=== PATIENT | male | born 1955 | race Caucasian/White ===

== ENCOUNTER 2018-07-04 09:13 | Emergency (ER) | payer OTHER ==
[2018-07-04] MEDS ORDERED: fentaNYL 100 MCG/2 ML INJ IVP ONE (09:47)
[2018-07-04] MEDS ORDERED: KETOROLAC 30 MG/1 ML SDV IVP ONE (09:47)
[2018-07-04] MEDS ORDERED: NS 1,000 ML IV ONE (09:47)
[2018-07-04] MEDS ORDERED: ONDANSETRON 4 MG/2 ML VIAL IVP ONE (09:47)
[2018-07-04] MEDS ORDERED: TAMSULOSIN HCL 0.4 MG CAP PO ONE (09:48)
--- NOTE | 2018-07-04 09:48 | EDPHY ---
H & P Time Seen by Provider: 07/04/18 09:26 HPI/ROS: CHIEF COMPLAINT: "I think I have a kidney stone" HISTORY OF PRESENT ILLNESS: The patient is a 63-year-old male with a history of numerous previous kidney stones the presents emergency department with similar complaints. Patient states he developed right flank pain approximately 36 hr ago. The pain has slowly progressed. He now has right testicular pain as well. This is typical of his previous kidney stones. He has had no nausea vomiting. No fevers or chills. No hematuria or dysuria. REVIEW OF SYSTEMS: 10 systems were reveiwed and are negative with the exception of the elements mentioned in the history of present illness. Past Medical/Surgical History: Includes kidney stone, intestinal resection Smoking Status: Never smoked Physical Exam: Vitals noted GENERAL: Well-appearing, in no acute distress, alert. Comfortably reading a book. HEENT: Eyes normal to inspection, normal pharynx, no signs of dehydration. NECK: Normal, supple. RESPIRATORY: Clear to auscultation bilaterally, no rales, rhonchi or wheezing. CVS: Regular rate and rhythm, no rubs, murmurs, or gallops. ABDOMEN: Soft, nontender, nondistended, no organomegaly. : Normal appearing testicles and penis. There is no testicular tenderness. Cremaster normal. BACK: Normal to inspection, no CVA tenderness. SKIN: Normal color, no rash, warm, dry. No pallor. EXTREMITIES: No pedal edema, no calf tenderness, no Homans sign or cords, no joint swelling. NEURO/PSYCH: Alert and oriented, normal mood and affect, normal motor sensory exam. Constitutional: Initial Vital Signs Temperature (C) 36.7 C 07/04/18 09:19 Heart Rate 60 07/04/18 09:19 Respiratory Rate 18 07/04/18 09:19 Blood Pressure 156/98 H 07/04/18 09:19 O2 Sat (%) 93 07/04/18 09:19 O2 Delivery Mode Room Air Allergies/Adverse Reactions: No Known Allergies Allergy (Verified 07/04/18 09:18) Home Medications: Medication Instructions Recorded Omeprazole 07/04/18 Medical Decision Making - Diagnostics Imaging Results: Imaging Impressions Abdomen/Pelvis CT 07/04/18 09:48 Impression: 1. Bilateral nephrolithiasis, with no obstructive ureterolithiasis. 2. Moderate prostatomegaly, indenting the urinary bladder base. 3. Mild distal descending and sigmoid colon diverticulosis, without active diverticulitis. Attention: This CT examination is specifically designed to evaluate patients who are clinically suspected of having acute obstructive uropathy. This examination does not use radiographic contrast, and as such, provides only a limited evaluation of the abdomen, pelvis, and retroperitoneum. If there is further clinical suspicion for pathological conditions other than obstructive uropathy, a complete CT evaluation of the abdomen and pelvis utilizing intravenous, oral, and rectal contrast should be considered. Findings were discussed with AMIRAH BATISTA MD at 11:02, on 07/04/2018. ED Course/Re-evaluation: In the emergency department I discussed possible etiologies with the patient. I answered all his questions. An IV was placed. Laboratory studies and urine sample were obtained. A CT scan of the abdomen pelvis was ordered. Patient was given Toradol 30 mg IV, fentanyl 50 mcg IV, Zofran 4 mg IV and Flomax 0.4 mg orally for pain and nausea. UA negative CBC and chemistry unremarkable. CT of the abdomen pelvis: Please refer the dictated report by Dr. Mora. Patient has bilateral nephrolithiasis. There is no ureterolithiasis. The patient does have enlarged prostate. I discussed the results with the patient. I answered all his questions. He understands he needs follow-up with his primary care physician and Urology pre CT findings. He is given warnings prior to leaving. Will return with worsening symptoms. He was given a 3 day course of Flomax. Differential Diagnosis: My differential includes but is not limited to kidney stone, urinary tract infection, pyelonephritis, testicular torsion - Data Points Laboratory Results: Laboratory Results 07/04/18 10:00 07/04/18 10:00 07/04/18 07/04/18 07/04/18 10:00 10:00 09:15 WBC 7.63 10^3/uL 10^3/uL (3.80-9.50) RBC 5.14 10^6/uL 10^6/uL (4.40-6.38) Hgb 16.4 g/dL g/dL (13.7-17.5) Hct 48.5 % % (40.0-51.0) MCV 94.4 fL fL (81.5-99.8) MCH 31.9 pg pg (27.9-34.1) MCHC 33.8 g/dL g/dL (32.4-36.7) RDW 12.7 % % (11.5-15.2) Plt Count 234 10^3/uL 10^3/uL (150-400) MPV 9.6 fL fL (8.7-11.7) Neut % (Auto) 66.4 % % (39.3-74.2) Lymph % (Auto) 23.5 % % (15.0-45.0) Cook % (Auto) 7.9 % % (4.5-13.0) Eos % (Auto) 1.2 % % (0.6-7.6) Baso % (Auto) 0.5 % % (0.3-1.7) Nucleat RBC Rel Count 0.0 % % (0.0-0.2) Absolute Neuts (auto) 5.07 10^3/uL 10^3/uL (1.70-6.50) Absolute Lymphs (auto) 1.79 10^3/uL 10^3/uL (1.00-3.00) Absolute Monos (auto) 0.60 10^3/uL 10^3/uL (0.30-0.80) Absolute Eos (auto) 0.09 10^3/uL 10^3/uL (0.03-0.40) Absolute Basos (auto) 0.04 10^3/uL 10^3/uL (0.02-0.10) Absolute Nucleated RBC 0.00 10^3/uL 10^3/uL (0-0.01) Immature Gran % 0.5 % % (0.0-1.1) Immature Gran # 0.04 10^3/uL 10^3/uL (0.00-0.10) Sodium 136 mEq/L mEq/L (135-145) Potassium 4.3 mEq/L mEq/L (3.5-5.2) Chloride 102 mEq/L mEq/L (97-110) Carbon Dioxide 24 mEq/l mEq/l (22-31) Anion Gap 10 mEq/L mEq/L (6-14) BUN 24 mg/dL H mg/dL (7-23) Creatinine 0.9 mg/dL mg/dL (0.7-1.3) Estimated GFR > 60 Glucose 99 mg/dL mg/dL (70-100) Calcium 9.5 mg/dL mg/dL (8.5-10.4) Urine Color COLORLESS Urine Appearance CLEAR Urine pH 7.0 (5.0-7.5) Ur Specific Coker 1.002 (1.002-1.030) Urine Protein NEGATIVE (NEGATIVE) Urine Ketones NEGATIVE (NEGATIVE) Urine Blood NEGATIVE (NEGATIVE) Urine Nitrate NEGATIVE (NEGATIVE) Urine Bilirubin NEGATIVE (NEGATIVE) Urine Urobilinogen NEGATIVE EU EU (0.2-1.0) Ur Leukocyte Esterase NEGATIVE (NEGATIVE) Urine Glucose NEGATIVE (NEGATIVE) Medications Given: Discontinued Medications Fentanyl (Sublimaze) 50 mcg IVP EDNOW ONE Stop: 07/04/18 09:48 Last Admin: 07/04/18 10:02 Dose: Not Given Sodium Chloride (Ns) 1,000 mls @ 0 mls/hr IV ONCE ONE; Wide Open PRN Reason: Protocol Stop: 07/04/18 09:48 Last Admin: 07/04/18 09:58 Dose: 1,000 mls Ketorolac Tromethamine (Toradol) 30 mg IVP EDNOW ONE Stop: 07/04/18 09:48 Last Admin: 07/04/18 09:58 Dose: 30 mg Ondansetron HCl (Zofran) 4 mg IVP EDNOW ONE Stop: 07/04/18 09:48 Last Admin: 07/04/18 10:02 Dose: Not Given Tamsulosin HCl (Flomax) 0.4 mg PO EDNOW ONE Stop: 07/04/18 09:49 Last Admin: 07/04/18 09:54 Dose: 0.4 mg Departure - Departure Disposition: Home, Routine, Self-Care Clinical Impression: Flank pain Condition: Good Instructions: Flank Pain (ED) Additional Instructions: You need follow-up with her primary care physician and or the urologist for the CT finding of enlarged prostate. You did have bilateral kidney stones but no ureteral stones. Return with increasing pain, fever, or any other concerns. Referrals: Bill Santa MD [Primary Care Provider] - 5-7 days, call for appt. Tramaine Marie MD [Medical Doctor] - 5-7 days, call for appt.
[2018-07-04 10:08] LABS: PLATELET COUNT 234 10^3/uL (150-400)
[2018-07-04 11:56] VITALS: BP 151/91
== END 2018-07-04 11:56 | disposition home or self-care (01) ==
DX: R10.31 Right lower quadrant pain (principal); E86.9 Volume depletion, unspecified; Z87.442 Personal history of urinary calculi
CPT/HCPCS: 96374; J1885; J2405